=== PATIENT | female | born 1935 | race Caucasian/White ===

== ENCOUNTER 2016-06-02 07:26 | Emergency (ER) | payer MEDICARE, BC ==
[~2016-06-02 07:26] MED LIST: ACTIGALL300 M1 PO; ALDACTONE25 M1 PO; ALLEGRA ALLERG180 M1 PO; ASPIRIN81 M1 PO; BENTYL10 M1 PO; BYSTOLIC5 M1 PO; COUMADIN5 M2 PO; COZAAR100 M1 PO; PRAVACHOL40 M1 PO; PRAVACHOL80 M1 PO; PREVACID30 M2 PO; SYNTHROID75 MC1 PO; VITAMIN D250000 UNI1 PO; VITAMIN D31000 UNI4 PO; ZOFRAN ODT4 MG PO
[2016-06-02 08:18] LABS: BASO % 0.7 % (0-2); EOS % 2.6 % (0-7); EOSINOPHIL ABSOLUTE COUNT 0.1 tho/cmm (0.0-0.7); HGB-HEMOGLOBIN 12.8 gm/dl (12.0-15.5); LYMPH % 36.8 % (20-45); LYMPH ABSOLUTE COUNT 1.6 tho/cmm (0.8-4.5); MCH (MEAN CORPUSCULAR HGB) 29.6 pg (28.0-32.0); MCHC MEAN CORPUSCULAR HGB CONC 33.7 % (32.0-36.0); MEAN PLATELET VOLUME 10.8 cmc (9.4-12.4); MONO % 8.9 % (0-12); MONOCYTE ABSOLUTE COUNT 0.4 tho/cmm (0.0-1.2); NEUTROPHIL ABSOLUTE COUNT 2.2 tho/cmm (1.6-8.0); NEUTROPHIL-AUTOMATED 2.2 tho/cmm (1.6-8.0); PLATELET COUNT 213 tho/cmm (150-450); RED BLOOD COUNT 4.32 mil/cmm (4.00-5.20); RED CELL DISTRIBUTION WIDTH 13.5 % (12.4-16.4); WHITE BLOOD COUNT 4.3 tho/cmm (4.0-10.0)
[2016-06-02 08:22] LABS: INR 3.5 INR (0.9-1.1); PROTHROMBIN TIME 41.7 SECONDS (9.0-13.6)
[2016-06-02 08:50] LABS: ANION GAP 12 mmol/L (0-20); BLOOD UREA NITROGEN 15 mg/dl (6-24); CALCIUM 8.5 mg/dl (8.5-10.5); CARBON DIOXIDE-VENOUS 25 mmol/L (22-32); CHLORIDE 111 mmol/l (96-110); CREATININE 0.98 mg/dl (0.50-1.10); GLUCOSE 122 mg/dL (70-110); POTASSIUM 4.5 mmol/L (3.7-5.1); SODIUM 143 mmol/L (135-145); eGFR VALUE FOR BLACK 63 mL/Min
[2016-06-02] MEDS ORDERED: ULTRAM50 M1 PO (09:42)
== END 2016-06-02 09:58 ==
LOC: EDMED 07:26
PROVIDERS: Emergency Medicine
DX: S33.5XXA Sprain of ligaments of lumbar spine, initial encounter (principal); S70.01XA Contusion of right hip, initial encounter; I10 Essential (primary) hypertension; Z79.01 Long term (current) use of anticoagulants; Z79.82 Long term (current) use of aspirin; Z79.899 Other long term (current) drug therapy; W00.0XXA Fall on same level due to ice and snow, initial encounter; Y92.019 Unspecified place in single-family (private) house as the place of occurrence of the external cause
CPT/HCPCS: J1170